=== PATIENT | male | born 1955 | race African-American/Black ===

== ENCOUNTER 2021-04-06 04:16 | Inpatient (IN) | payer OTHER ==
[2021-04-02 13:09] VITALS: BMI 28.0
[2021-04-06] MEDS ORDERED: PROPOFOL 20 ML ONE ×2 (07:17→11:21)
[2021-04-06] MEDS ORDERED: LIDOCAINE HCL/PF 2% SDV 5ML VIAL ONE (07:19)
[2021-04-06] MEDS ORDERED: ONDANSETRON 4 MG/2 ML VIAL ONE (07:19)
[2021-04-06] MEDS ORDERED: DEXAMETHASONE SOD PHOSPHATE 4 MG/1 ML VIAL ONE ×2 (07:19→09:26)
[2021-04-06] MEDS ORDERED: ceFAZolin SODIUM 1 GM VIAL ONE ×3 (07:19→13:02)
[2021-04-06] MEDS ORDERED: LIDOCAINE 1%/EPI 1:100000 (20 ML MULTI DOSE VIAL) ONE (07:31)
[2021-04-06] MEDS ORDERED: BUPIVACAINE HCL/PF 0.25% (2.5MG/ML) 10 ML VIAL ONE (07:32)
[2021-04-06] MEDS ORDERED: BUPIVACAINE LIPOSOME/PF (EXPAREL) 266 MG/20 ML VIAL ONE (07:32)
[2021-04-06] MEDS ORDERED: THROMBIN (BOVINE) 20,000 UNIT VIAL TP ONE (07:32)
[2021-04-06] MEDS ORDERED: fentaNYL CITRATE 250 MCG/5 ML VIAL ONE (07:54)
[2021-04-06] MEDS ORDERED: MIDAZOLAM HCL 2 MG/2 ML SINGLE DOSE VIAL ONE (07:54)
[2021-04-06] MEDS ORDERED: TRANEXAMIC ACID 1000 MG/10 ML VIAL ONE ×2 (07:55→11:42)
[2021-04-06] MEDS ORDERED: VANCOMYCIN 1,000 MG VIAL (RESTRICTED TO ID ONLY) ONE (07:56)
[2021-04-06] MEDS ORDERED: GENTAMICIN SO4 80 MG/2 ML VIAL ONE (08:19)
[2021-04-06] MEDS ORDERED: ROCURONIUM BROMIDE 50 MG/5 ML SYRINGE ONE ×3 (08:30→12:40)
[2021-04-06] MEDS ORDERED: TRANEXAMIC ACID 1000 MG/10 ML VIAL IVPB ONE ×2 (08:30→11:50)
[2021-04-06] MEDS ORDERED: LIDOCAINE 1%/EPI 1:100000 (20 ML MULTI DOSE VIAL) IJ ONE (08:44)
[2021-04-06] MEDS ORDERED: VANCOMYCIN 1 GM in NS (PRE-DOCKED) 1,000 MG/250 ML IVPB ONE (08:45)
[2021-04-06] MEDS ORDERED: ceFAZolin SODIUM 1 GM VIAL IVPB ONE ×2 (08:45→11:45)
[2021-04-06] MEDS ORDERED: GENTAMICIN SO4 80 MG/2 ML VIAL IVPB ONE (09:06)
[2021-04-06] MEDS ORDERED: THROMBIN (BOVINE) 5,000 UNIT VIAL TP ONE (09:06)
[2021-04-06] MEDS ORDERED: BACITRACIN 50,000 UNITS VIAL TP ONE (09:06)
[2021-04-06] MEDS ORDERED: BACITRACIN 15 GM TUBE TOPICAL OINTMENT ONE (09:16)
[2021-04-06] MEDS ORDERED: KETAMINE HCL 200 MG/20 ML VIAL ONE (11:06)
[2021-04-06] MEDS ORDERED: LIDOCAINE 1%/EPI 1:100000 (50 ML MULTI DOSE VIAL) INF ONE (11:50)
[2021-04-06] MEDS ORDERED: HYDROmorphone HCl 2 MG/ML VIAL ONE (12:38)
[2021-04-06] MEDS ORDERED: BUPIVACAINE LIPOSOME/PF (EXPAREL) 266 MG/20 ML VIAL NR ONE (13:13)
[2021-04-06] MEDS ORDERED: BUPIVACAINE HCL/PF 0.5% (5MG/ML) 10 ML VIAL IJ ONE (13:13)
[2021-04-06] MEDS ORDERED: BUPIVACAINE HCL/PF 0.25% (2.5MG/ML) 10 ML VIAL IJ ONE (13:13)
[2021-04-06] MEDS ORDERED: NEOSTIGMINE METHYLSULFATE 0.5 MG/1 ML - 10 ML MDV ONE (13:32)
[2021-04-06] MEDS ORDERED: GLYCOPYRROLATE 0.2 MG/1 ML VIAL ONE (13:33)
[2021-04-06] MEDS ORDERED: oxyCODONE HCL 5 MG TABLET PO PRN (14:17)
[2021-04-06] MEDS ORDERED: HYDROmorphone HCl 2 MG/ML VIAL SQ PRN (14:17)
[2021-04-06] MEDS ORDERED: ONDANSETRON 4 MG/2 ML VIAL IVPUSH PRN ×2 (14:17→16:05)
[2021-04-06] MEDS ORDERED: LACTATED RINGERS SOLUTION 1,000 ML IV SCH (14:30)
[2021-04-06] MEDS ORDERED: ACETAMINOPHEN 1000 MG/100 ML VIAL (NON FORMULARY) IVPB PRN (16:06)
[2021-04-06] MEDS ORDERED: CEFAZOLIN 2 GM/D5W 2 GM/50 ML ML IVPB SCH (19:00)
[2021-04-06] MEDS: LACTATED RINGERS SOLUTION 1,000 ML IV SCH (19:18)
[2021-04-06] MEDS: PANTOPRAZOLE SODIUM 40 MG VIAL IVPUSH SCH (19:18)
[2021-04-07] MEDS: oxyCODONE HCL 5 MG TABLET PO PRN ×4 (01:39→23:01)
[2021-04-07] MEDS: CEFAZOLIN 2 GM/D5W 2 GM/50 ML ML IVPB SCH ×3 (01:40→12:53)
[2021-04-07] MEDS: LACTATED RINGERS SOLUTION 1,000 ML IV SCH ×2 (07:56→17:34)
[2021-04-07 09:52] LABS: BASO % 0.4 % (0-2.0); EOS % 0.1 % (0-4.5); HEMATOCRIT 36.3 % (35.4-49); HEMOGLOBIN 12.5 GM/dL (11.7-16.9); LYMPH % 7.7 % (8-40); MCH 28.9 pg (25.7-33.7); MCHC 34.5 g/dl (32.0-35.9); MEAN PLT VOLUME 8.9 fl (7.5-11.1); MONO % 9.3 % (3.8-10.2); NEUT % 82.5 % (42.8-82.8); PLATELET COUNT 177 10^3/uL (134-434); RBC 4.33 M/mm3 (4.00-5.60); RDW 14.3 % (11.9-15.9)
[2021-04-07] MEDS ORDERED: PT OWN MED DRAWER 7, Y5N ONE (09:54)
[2021-04-07] MEDS: CHLORTHALIDONE 25 MG TABLET PO SCH (09:57)
[2021-04-07] MEDS: ATENOLOL 50 MG TABLET (FP) PO SCH (09:57)
[2021-04-07] MEDS ORDERED: ATENOLOL CHLORTHALIDONE PO SCH (10:00)
[2021-04-07 10:03] LABS: INR 1.1 (0.83-1.09); PROTHROMBIN TIME (PATIENT) 13.6 SEC (9.7-13.0)
[2021-04-07 10:10] LABS: CHLORIDE 98 mmol/L (98-107); SODIUM 135 mmol/L (136-145)
[2021-04-07] MEDS: PANTOPRAZOLE SODIUM 40 MG VIAL IVPUSH SCH (10:12)
[2021-04-07 10:14] LABS: BLOOD UREA NITROGEN 19.4 mg/dL (7-18); CO2 29 mmol/L (21-32); GLUCOSE,RANDOM 146 mg/dL (74-106)
[2021-04-07 10:15] LABS: ALBUMIN 2.7 g/dl (3.4-5.0); CALCIUM 8.4 mg/dL (8.5-10.1); MAGNESIUM 1.6 mg/dL (1.8-2.4)
[2021-04-07 10:18] LABS: CREATININE 1.6 mg/dL (0.55-1.3); PHOSPHOROUS 2.5 mg/dL (2.5-4.9); SGOT/AST 49 U/L (15-37); SGPT/ALT 24 U/L (13-61)
[2021-04-07 10:20] LABS: BILIRUBIN,TOTAL 0.4 mg/dL (0.2-1); TOT PROT 6.7 g/dl (6.4-8.2)
[2021-04-07 10:21] LABS: ALK PHOS 71 U/L (45-117); ANION GAP 8 MMOL/L (8-16)
[2021-04-07] MEDS ORDERED: POTASSIUM CHLORIDE ORAL LIQUID 20 MEQ/15 ML PO ONE (10:43)
[2021-04-07] MEDS: KCL 10 MEQ IVPB 10 MEQ/100 ML INFUS.BAG IVPB SCH ×2 (11:13→13:40)
[2021-04-07 12:31] LABS: BASO % 0.3 % (0-2.0); EOS % 0.1 % (0-4.5); HEMOGLOBIN 13.1 GM/dL (11.7-16.9); LYMPH % 5.8 % (8-40); MCH 28.3 pg (25.7-33.7); MCHC 33.5 g/dl (32.0-35.9); MEAN CELL VOLUME 84.4 fl (80-96); MEAN PLT VOLUME 8.8 fl (7.5-11.1); NEUT % 83.8 % (42.8-82.8); PLATELET COUNT 183 10^3/uL (134-434); RBC 4.62 M/mm3 (4.00-5.60); RDW 14.1 % (11.9-15.9); WHITE BLOOD COUNT 13.9 K/mm3 (4.0-10.0)
[2021-04-07 12:55] LABS: CALCIUM 8.6 mg/dL (8.5-10.1)
[2021-04-07 12:56] LABS: ALBUMIN 2.9 g/dl (3.4-5.0); MAGNESIUM 1.9 mg/dL (1.8-2.4)
[2021-04-07 12:59] LABS: CREATININE 1.4 mg/dL (0.55-1.3); PHOSPHOROUS 2.7 mg/dL (2.5-4.9)
[2021-04-07 13:00] LABS: BILIRUBIN,TOTAL 0.4 mg/dL (0.2-1)
[2021-04-08] MEDS: oxyCODONE HCL 5 MG TABLET PO PRN ×2 (06:07→13:27)
[2021-04-08 09:03] LABS: BASO % 0.1 % (0-2.0); EOS % 0.1 % (0-4.5); HEMATOCRIT 40.8 % (35.4-49); HEMOGLOBIN 13.8 GM/dL (11.7-16.9); LYMPH % 6.7 % (8-40); MCH 28.9 pg (25.7-33.7); MCHC 33.8 g/dl (32.0-35.9); MEAN CELL VOLUME 85.5 fl (80-96); MEAN PLT VOLUME 9.2 fl (7.5-11.1); MONO % 11.9 % (3.8-10.2); NEUT % 81.2 % (42.8-82.8); PLATELET COUNT 185 10^3/uL (134-434); RBC 4.77 M/mm3 (4.00-5.60); RDW 14.2 % (11.9-15.9); WHITE BLOOD COUNT 15.4 K/mm3 (4.0-10.0)
[2021-04-08] MEDS ORDERED: PT OWN MED DRAWER 7, Y5N ONE (09:28)
[2021-04-08] MEDS: PANTOPRAZOLE SODIUM 40 MG VIAL IVPUSH SCH (09:31)
[2021-04-08] MEDS: CHLORTHALIDONE 25 MG TABLET PO SCH (09:32)
[2021-04-08] MEDS: ATENOLOL 50 MG TABLET (FP) PO SCH (09:32)
[2021-04-08 09:42] LABS: CREATININE 1.2 mg/dL (0.55-1.3); PHOSPHOROUS 2.6 mg/dL (2.5-4.9)
[2021-04-08 09:43] LABS: ALBUMIN 2.9 g/dl (3.4-5.0); BLOOD UREA NITROGEN 13.6 mg/dL (7-18)
[2021-04-08 09:44] LABS: TOT PROT 7.6 g/dl (6.4-8.2)
[2021-04-08] MEDS ORDERED: ACETAMINOPHEN 1000 MG/100 ML VIAL (NON FORMULARY) IVPB PRN (10:44)
[2021-04-09] MEDS: LACTATED RINGERS SOLUTION 1,000 ML IV SCH ×2 (02:25→17:33)
[2021-04-09] MEDS: oxyCODONE HCL 5 MG TABLET PO PRN ×2 (02:28→09:36)
[2021-04-09] MEDS ORDERED: PT OWN MED DRAWER 7, Y5N ONE (09:28)
[2021-04-09] MEDS: PANTOPRAZOLE SODIUM 40 MG VIAL IVPUSH SCH (09:32)
[2021-04-09] MEDS: CHLORTHALIDONE 25 MG TABLET PO SCH (09:35)
[2021-04-09] MEDS: ATENOLOL 50 MG TABLET (FP) PO SCH (09:35)
[2021-04-09] MEDS ORDERED: INSULIN (NOVOLOG) ASPART 100 UNITS/ML 10ML VIAL ONE (11:23)
[2021-04-09] MEDS ORDERED: POTASSIUM CHLORIDE ORAL LIQUID 20 MEQ/15 ML PO ONE (12:37)
[2021-04-09] MEDS: ACETAMINOPHEN 325 MG TABLET (FP) PO PRN (20:26)
[2021-04-09 21:47] LABS: BASO % 0.4 % (0-2.0); EOS % 0.2 % (0-4.5); HEMATOCRIT 39.7 % (35.4-49); HEMOGLOBIN 13.5 GM/dL (11.7-16.9); LYMPH % 10.6 % (8-40); MCH 28.6 pg (25.7-33.7); MEAN PLT VOLUME 8.9 fl (7.5-11.1); MONO % 15.2 % (3.8-10.2); NEUT % 73.6 % (42.8-82.8); PLATELET COUNT 204 10^3/uL (134-434); RBC 4.73 M/mm3 (4.00-5.60); RDW 14.2 % (11.9-15.9); WHITE BLOOD COUNT 18.4 K/mm3 (4.0-10.0)
[2021-04-10 00:28] LABS: EPI CELLS 4 /uL (0-25.1); HYALINE CASTS 2 /uL (0-3.1); PH,URINE 6.5 (5.0-8.0); URINE APPEARANCE CLEAR; URINE BACTERIA 1 /uL (0-1359); URINE BILIRUBIN NEGATIVE (NEGATIVE); URINE COLOR YELLOW; URINE GLUCOSE (UA) NEGATIVE (NEGATIVE); URINE KETONE NEGATIVE (NEGATIVE); URINE LEUK ESTERASE NEGATIVE (NEGATIVE); URINE NITRITE NEGATIVE (NEGATIVE); URINE PROTEIN 1+ (NEGATIVE); URINE RBC 18 /uL (0-23.9); URINE WBC 3 /uL (0-25.8)
[2021-04-10] MEDS: ACETAMINOPHEN 325 MG TABLET (FP) PO PRN (02:43)
[2021-04-10] MEDS ORDERED: PT OWN MED DRAWER 7, Y5N ONE (08:47)
[2021-04-10] MEDS ORDERED: oxyCODONE HCL 5 MG TABLET ONE (10:32)
[2021-04-10] MEDS ORDERED: oxyCODONE HCL 5 MG TABLET PO PRN (10:38)
[2021-04-10] MEDS: ATENOLOL 50 MG TABLET (FP) PO SCH (10:39)
[2021-04-10] MEDS: PANTOPRAZOLE SODIUM 40 MG VIAL IVPUSH SCH (10:40)
[2021-04-10] MEDS: CHLORTHALIDONE 25 MG TABLET PO SCH (10:40)
[2021-04-10] MEDS ORDERED: CEFAZOLIN 1 GM in DEXTROSE 5%-WATER - 50 ML IVPB ONE (11:09)
[2021-04-10] MEDS: oxyCODONE HCL 5 MG TABLET PO PRN ×2 (11:24→21:37)
[2021-04-10] MEDS ORDERED: POTASSIUM CHLORIDE ORAL LIQUID 20 MEQ/15 ML PO ONE (12:00)
[2021-04-10] MEDS: LACTATED RINGERS SOLUTION 1,000 ML IV SCH (21:34)
[2021-04-11] MEDS: oxyCODONE HCL 5 MG TABLET PO PRN ×3 (01:45→20:58)
[2021-04-11 09:27] LABS: BASO % 0.4 % (0-2.0); EOS % 1.4 % (0-4.5); HEMATOCRIT 40.4 % (35.4-49); HEMOGLOBIN 13.8 GM/dL (11.7-16.9); MCHC 34.1 g/dl (32.0-35.9); MEAN CELL VOLUME 85.1 fl (80-96); MONO % 15.3 % (3.8-10.2); NEUT % 71.9 % (42.8-82.8); PLATELET COUNT 246 10^3/uL (134-434); RBC 4.75 M/mm3 (4.00-5.60); RDW 13.7 % (11.9-15.9); WHITE BLOOD COUNT 14.4 K/mm3 (4.0-10.0)
[2021-04-11 09:54] LABS: CALCIUM 9.5 mg/dL (8.5-10.1)
[2021-04-11 09:55] LABS: ALBUMIN 2.7 g/dl (3.4-5.0); BLOOD UREA NITROGEN 30.8 mg/dL (7-18); MAGNESIUM 2.5 mg/dL (1.8-2.4)
[2021-04-11 09:58] LABS: CREATININE 1.3 mg/dL (0.55-1.3); PHOSPHOROUS 3.7 mg/dL (2.5-4.9)
[2021-04-11] MEDS ORDERED: PT OWN MED DRAWER 7, Y5N ONE (10:14)
[2021-04-11] MEDS: CHLORTHALIDONE 25 MG TABLET PO SCH (10:16)
[2021-04-11] MEDS: PANTOPRAZOLE 40 MG TABLET PO SCH (10:16)
[2021-04-11] MEDS: ATENOLOL 50 MG TABLET (FP) PO SCH (10:17)
[2021-04-11] MEDS: LACTATED RINGERS SOLUTION 1,000 ML IV SCH (19:46)
[2021-04-12] MEDS: oxyCODONE HCL 5 MG TABLET PO PRN ×3 (01:15→22:57)
[2021-04-12] MEDS ORDERED: PT OWN MED DRAWER 7, Y5N ONE (09:07)
[2021-04-12] MEDS: CHLORTHALIDONE 25 MG TABLET PO SCH (09:08)
[2021-04-12] MEDS: ATENOLOL 50 MG TABLET (FP) PO SCH (09:09)
[2021-04-12] MEDS: PANTOPRAZOLE 40 MG TABLET PO SCH (09:09)
[2021-04-12 11:13] LABS: HEMATOCRIT 40.5 % (35.4-49); HEMOGLOBIN 13.8 GM/dL (11.7-16.9); MCHC 33.9 g/dl (32.0-35.9); MEAN CELL VOLUME 85.4 fl (80-96); MEAN PLT VOLUME 8.8 fl (7.5-11.1); PLATELET COUNT 264 10^3/uL (134-434); RBC 4.75 M/mm3 (4.00-5.60); RDW 13.9 % (11.9-15.9); WHITE BLOOD COUNT 12.1 K/mm3 (4.0-10.0)
[2021-04-12 11:44] LABS: ANISOCYTOSIS 1+; MACROCYTOSIS 0; PLATELET ESTIMATE NORMAL
[2021-04-12 12:10] LABS: BLOOD UREA NITROGEN 33.4 mg/dL (7-18); CALCIUM 8.9 mg/dL (8.5-10.1); CREATININE 1.3 mg/dL (0.55-1.3)
[2021-04-12] MEDS ORDERED: SODIUM CHLORIDE 1,000 ML IV SCH (13:15)
[2021-04-12] MEDS: POLYETHYLENE GLYCOL (HEALTHYLAX) 3350 17 GM PACKET PO SCH (14:44)
[2021-04-12] MEDS: POTASSIUM CHLORIDE TABS 20 MEQ TABLET.ER (FP) PO ONE ×2 (14:44→14:48)
[2021-04-12] MEDS ORDERED: POTASSIUM CHLORIDE ORAL LIQUID 20 MEQ/15 ML PO ONE (18:08)
[2021-04-13] MEDS: oxyCODONE HCL 5 MG TABLET PO PRN (03:37)
[2021-04-13] MEDS: POLYETHYLENE GLYCOL (HEALTHYLAX) 3350 17 GM PACKET PO SCH (09:04)
[2021-04-13] MEDS: ATENOLOL 50 MG TABLET (FP) PO SCH (09:04)
[2021-04-13] MEDS: PANTOPRAZOLE 40 MG TABLET PO SCH (09:04)
[2021-04-13 11:29] LABS: BASO % 0.2 % (0-2.0); EOS % 1.6 % (0-4.5); HEMATOCRIT 38.8 % (35.4-49); LYMPH % 10.2 % (8-40); MCH 28.5 pg (25.7-33.7); MCHC 33.6 g/dl (32.0-35.9); MEAN CELL VOLUME 84.9 fl (80-96); MEAN PLT VOLUME 8.6 fl (7.5-11.1); MONO % 12.8 % (3.8-10.2); NEUT % 75.2 % (42.8-82.8); PLATELET COUNT 298 10^3/uL (134-434); RBC 4.57 M/mm3 (4.00-5.60); RDW 14.1 % (11.9-15.9); WHITE BLOOD COUNT 11.2 K/mm3 (4.0-10.0)
[2021-04-13 11:47] LABS: CALCIUM 9.2 mg/dL (8.5-10.1)
[2021-04-13 11:48] LABS: BLOOD UREA NITROGEN 32.3 mg/dL (7-18)
[2021-04-13 11:51] LABS: CREATININE 1.2 mg/dL (0.55-1.3)
[2021-04-13] MEDS ORDERED: ACETAMINOPHEN 1000 MG/100 ML VIAL (NON FORMULARY) IVPB ONE (23:40)
[2021-04-14] MEDS ORDERED: ACETAMINOPHEN 500 MG TABLET (FP) PO PRN (01:09)
[2021-04-14] MEDS ORDERED: ACETAMINOPHEN 325 MG TABLET (FP) PO ONE (01:10)
[2021-04-14 06:18] VITALS: BP 151/87; PULSE 71; TEMP 98.6
[2021-04-14] MEDS ORDERED: POTASSIUM CHLORIDE ORAL LIQUID 20 MEQ/15 ML PO ONE (07:10)
[2021-04-14] MEDS: PANTOPRAZOLE 40 MG TABLET PO SCH (09:08)
[2021-04-14] MEDS: POLYETHYLENE GLYCOL (HEALTHYLAX) 3350 17 GM PACKET PO SCH (09:08)
[2021-04-14] MEDS: ATENOLOL 50 MG TABLET (FP) PO SCH (09:08)
[2021-04-14 09:51] LABS: HEMATOCRIT 37.4 % (35.4-49); HEMOGLOBIN 12.6 GM/dL (11.7-16.9); MCH 28.5 pg (25.7-33.7); MCHC 33.6 g/dl (32.0-35.9); MEAN CELL VOLUME 84.6 fl (80-96); MEAN PLT VOLUME 8.7 fl (7.5-11.1); PLATELET COUNT 314 10^3/uL (134-434); RBC 4.42 M/mm3 (4.00-5.60); RDW 13.7 % (11.9-15.9); WHITE BLOOD COUNT 12.1 K/mm3 (4.0-10.0)
[2021-04-14 10:12] LABS: CALCIUM 9.1 mg/dL (8.5-10.1)
[2021-04-14 10:13] LABS: ALBUMIN 2.5 g/dl (3.4-5.0); MAGNESIUM 2.3 mg/dL (1.8-2.4)
[2021-04-14 10:14] LABS: BLOOD UREA NITROGEN 29.5 mg/dL (7-18)
[2021-04-14 10:16] LABS: CREATININE 1.2 mg/dL (0.55-1.3); PHOSPHOROUS 3.9 mg/dL (2.5-4.9)
[2021-04-14 10:17] LABS: BILIRUBIN,TOTAL 0.6 mg/dL (0.2-1)
[2021-04-14 10:18] LABS: TOT PROT 7.8 g/dl (6.4-8.2)
[2021-04-14 13:00] LABS: ANISOCYTOSIS 0; MACROCYTOSIS 0; PLATELET ESTIMATE NORMAL
== END 2021-04-14 10:43 | disposition home health service (06) | DRG 454 ==
LOC: J2C 04:16 → J8W 17:42
PROVIDERS: ADMIT Orthopaedic Surgery Orthopaedic Surgery of the Spine
PROC: 0RB30ZZ Excision of Cervical Vertebral Disc, Open Approach (ICD-10-PCS; 2021-04-06)
PROC: 01N10ZZ Release Cervical Nerve, Open Approach (ICD-10-PCS; 2021-04-06)
PROC: 00NW0ZZ Release Cervical Spinal Cord, Open Approach (ICD-10-PCS; 2021-04-06)
PROC: 0RG4071 Fusion of Cervicothoracic Vertebral Joint with Autologous Tissue Substitute, Posterior Approach, Posterior Column, Open Approach (ICD-10-PCS; 2021-04-06)
PROC: 00NX0ZZ Release Thoracic Spinal Cord, Open Approach (ICD-10-PCS; 2021-04-06)
PROC: 4A11X4G Monitoring of Peripheral Nervous Electrical Activity, Intraoperative, External Approach (ICD-10-PCS; 2021-04-06)
PROC: 0RG20A0 Fusion of 2 or more Cervical Vertebral Joints with Interbody Fusion Device, Anterior Approach, Anterior Column, Open Approach (ICD-10-PCS; principal; 2021-04-06 08:00)
PROC: 0RG2071 Fusion of 2 or more Cervical Vertebral Joints with Autologous Tissue Substitute, Posterior Approach, Posterior Column, Open Approach (ICD-10-PCS; 2021-04-06 08:00)
DX: M50.01 Cervical disc disorder with myelopathy, high cervical region (principal); E87.1 Hypo-osmolality and hyponatremia; M51.04 Intervertebral disc disorders with myelopathy, thoracic region; M50.11 Cervical disc disorder with radiculopathy, high cervical region; M47.22 Other spondylosis with radiculopathy, cervical region; M48.02 Spinal stenosis, cervical region; M40.292 Other kyphosis, cervical region; M48.04 Spinal stenosis, thoracic region; I10 Essential (primary) hypertension; E78.5 Hyperlipidemia, unspecified; K21.9 Gastro-esophageal reflux disease without esophagitis; G62.9 Polyneuropathy, unspecified; R26.9 Unspecified abnormalities of gait and mobility
CPT/HCPCS: 36415; 71045-TC-FY; 72125-TC; 76000-TC-FY; 80048; 80053; 81003; 83735; 84100; 85025; 85379; 85610; 86850; 86900; 86901; 87040; 87086; 94010; 94760; 97116-GP; 97162-GP; C9803; J0131; U0003; U0005